=== PATIENT | male | born 1940 | race Caucasian/White ===

== ENCOUNTER → 2017-08-07 | Outpatient (REF) | payer MEDICARE ==
[2017-08-07 12:44] LABS: NT-PRO BNP 24 PG/ML (<450)
== END ==
LOC: M LAB REF 12:02
DX: R06.02 Shortness of breath (principal)
CPT/HCPCS: 83880

== ENCOUNTER → 2018-03-26 | Outpatient (CLI) | payer MEDICARE ==
[2018-03-26 17:13] LABS: BLOOD UREA NITROGEN 11 MG/DL (7-18); CALCIUM LEVEL 8.7 MG/DL (8.8-10.2); CARBON DIOXIDE LEVEL 31 MEQ/L (21-32); CHLORIDE LEVEL 102 MEQ/L (98-107); CREATININE FOR GFR 0.83 MG/DL (0.70-1.30); GLOMERULAR FILTRATION RATE > 60.0 (>42); GLUCOSE, FASTING 119 MG/DL (70-100); POTASSIUM SERUM 4.3 MEQ/L (3.5-5.1); SODIUM LEVEL 139 MEQ/L (136-145)
[2018-03-26 17:25] LABS: HEMATOCRIT 41.1 % (42.0-52.0); HEMOGLOBIN 13.8 g/dl (13.5-17.5); MEAN CORPUSCULAR HEMOGLOBIN 31.7 pg (27.0-33.0); MEAN CORPUSCULAR HGB CONC 33.6 g/dl (32.0-36.5); MEAN CORPUSCULAR VOLUME 94.3 fl (80.0-96.0); PLATELET COUNT, AUTOMATED 202 10^3/uL (150-450); RED BLOOD COUNT 4.36 10^6/uL (4.30-6.10); WHITE BLOOD COUNT 6.8 10^3/uL (4.0-10.0)
== END ==
LOC: M WUC 14:42
PROVIDERS: ATTEND Internal Medicine Cardiovascular Disease
DX: I25.118 Atherosclerotic heart disease of native coronary artery with other forms of angina pectoris (principal)

== ENCOUNTER → 2018-10-01 | Outpatient (CLI) | payer MEDICARE ==
[~2018-10-01] MED LIST: METHACHOLINE KIT (J7674) INH ONE
--- NOTE | 2018-10-01 13:21 | PFTRPT ---
Site: [facility], [address] [place], [address] ID: [id number] Name: VALERIE LEMUS Visit Date: 10/01/2018 Second ID: [id number] Referring Doctor: ANTIONETTE HODGES Reviewing Doctor: Johnny Butler MD Cocoa Butter Filter Operator: Antonio PEGUERO RRT Age: 77 : 1940 Sex: Male Race: Height: 63.00 Inches Weight: 151.00 Lbs BSA: 1.72 Order IDs: [id number] Requested Test(s): <RESP-PFT.METH CHAL> Diagnosis: R05 puffs of albuterol for postbronchodilator. Review Status: Not Reviewed Pre-Bronch Post-Bronch Pred Actual %Pred Actual %Chng SPIROMETRY FVC (L) 2.96 3.05 102 2.94 -3 FEV1 (L) 2.07 2.34 113 2.28 -2 FEV1/FVC (%) 72 77 106 77 FEF 25% (L/sec) 5.89 5.55 94 6.46 16 FEF 50% (L/sec) 3.76 2.35 62 2.45 4 FEF 75% (L/sec) 0.77 0.71 91 0.51 -27 FEF 25-75% (L/sec) 1.42 1.88 132 1.67 -11 FEF Max (L/sec) 5.89 7.72 131 7.86 1 FIVC (L) 2.09 2.73 30 FIF 50% (L/sec) 4.23 3.20 75 3.31 3 FIF Max (L/sec) 3.53 3.68 4 Expiratory Time (sec) 6.82 6.54 -4 Back Extrap Vol (L) 0.05 0.07 34 Time To FEFmax (sec) 0.055 0.057 2
== END ==
LOC: M CARPUL 12:17
PROVIDERS: ATTEND Nurse Practitioner Family
DX: R05 Cough (principal)
CPT/HCPCS: 94070; 95070; J7674

== ENCOUNTER → 2020-02-24 | Outpatient (CLI) | payer SELFPAY | LOC: M LABSMTC 13:37 | PROVIDERS: ATTEND Pediatrics | DX: Z20.822 Contact with and (suspected) exposure to COVID-19 (principal) ==

== ENCOUNTER → 2020-07-03 | Outpatient (REF) | payer MEDICARE | LOC: M LAB REF 09:51 | PROVIDERS: ATTEND Family Medicine | DX: R19.7 Diarrhea, unspecified (principal) ==

== ENCOUNTER → 2020-07-20 | Outpatient (CLI) | payer MEDICARE ==
[~2020-07-20] MED LIST changes: +E-Z-GAS II EFFERVESCENT PACKET (SODIUM BICARB./CITRIC ACID/SIMETHICONE) As Ordered ONE; +E-Z-HD 98% w/w 340GM SUSP BTL As Ordered ONE; +E-Z-PAQUE 96% w/w SUSP 176GM BTL As Ordered ONE; -METHACHOLINE KIT (J7674) INH ONE
--- NOTE | 2020-07-21 18:36 | REP ---
INDICATION: GERD. COMPARISON: None. TECHNIQUE: The procedure was performed under the direct supervision of Dr. Cavanaugh. The images were reviewed with Dr. Cavanaugh. Liquid barium and gas producing crystals were given in the erect position as well as liquid barium in the prone oblique position in order to perform a double contrast upper GI examination. A combination of fluoroscopy, spot films and last image hold technology was utilized. 0.9 minutes of fluoro time was utilized for this procedure. FINDINGS: The baggage handling supervisor film shows no organomegaly or pathological masses. The intestinal gas pattern is non-specific. The oral and pharyngeal stages of deglutition are unremarkable. Esophageal transport is prompt and efficient and there is no esophagitis, stricture, mucosal ring or hiatal hernia. Within the stomach there are multiple sub cm polyps identified. The stomach is otherwise unremarkable.. The duodenal chowdary are normally outlined. The mucosal folds are smooth and regular. There is no duodenitis pancreatitis peptic ulcer disease or neoplasm. The visualized portion of the proximal small bowel appears normal in course and caliber. IMPRESSION: Within the stomach there are multiple sub cm polyps. Otherwise, unremarkable double contrast upper GI examination. <Electronically signed by Luther Galeas > 07/20/20 1648 <Electronically signed by Kt Cavanaugh > 07/21/20 [id number]
== END ==
LOC: M RAD 10:17
PROVIDERS: ATTEND Family Medicine
DX: K21.9 Gastro-esophageal reflux disease without esophagitis (principal); K31.7 Polyp of stomach and duodenum

== ENCOUNTER → 2020-08-04 | Outpatient (REF) | payer MEDICARE | LOC: M LAB REF 12:56 | PROVIDERS: ATTEND Family Medicine | DX: R74.01 Elevation of levels of liver transaminase levels (principal) ==

== ENCOUNTER → 2021-09-05 | Outpatient (CLI) | payer MEDICARE ==
[~2021-09-05] MED LIST changes: -E-Z-GAS II EFFERVESCENT PACKET (SODIUM BICARB./CITRIC ACID/SIMETHICONE) As Ordered ONE; -E-Z-HD 98% w/w 340GM SUSP BTL As Ordered ONE; -E-Z-PAQUE 96% w/w SUSP 176GM BTL As Ordered ONE; +GASTROGRAFIN SOLUTION 30ML (Q9963) As Ordered ONE; +ISOVUE-370 76% 100ML VIAL As Ordered ONE
== END ==
LOC: M RAD 12:44
PROVIDERS: ATTEND Family Medicine
DX: R10.814 Left lower quadrant abdominal tenderness (principal); K76.89 Other specified diseases of liver; N40.0 Benign prostatic hyperplasia without lower urinary tract symptoms; K86.89 Other specified diseases of pancreas; K40.90 Unilateral inguinal hernia, without obstruction or gangrene, not specified as recurrent
CPT/HCPCS: 74177; Q9963; Q9967

== ENCOUNTER → 2022-04-08 | Outpatient (CLI) | payer MEDICARE | LOC: M WUC 10:30 | PROVIDERS: ATTEND Family Medicine | DX: M54.2 Cervicalgia (principal); M47.812 Spondylosis without myelopathy or radiculopathy, cervical region; M46.02 Spinal enthesopathy, cervical region ==

== ENCOUNTER 2022-05-09 10:06 | Outpatient (RCR) | payer MEDICARE | END 2022-05-10 | LOC: M PT 10:06 | PROVIDERS: ATTEND Family Medicine | DX: M54.2 Cervicalgia (principal); M25.60 Stiffness of unspecified joint, not elsewhere classified ==

== ENCOUNTER 2022-05-16 10:08 | Outpatient (RCR) | payer MEDICARE | END 2022-06-09 | LOC: M PT 10:08 | PROVIDERS: ATTEND Family Medicine | DX: M54.2 Cervicalgia (principal) ==